=== PATIENT | female | born 1970 | race Caucasian/White ===

== ENCOUNTER 2017-08-15 12:34 | Emergency (ER) | payer OTHER ==
[2017-08-15 12:40] VITALS: BP 132/69; PULSE 95; RESP 16; TEMP 98; O2SAT 99
[2017-08-15] MEDS ORDERED: ACETAMINOPHEN/HYDROcodone 325 MG/10 MG TAB PO ONE (13:15)
[2017-08-15] MEDS ORDERED: oxyCODONE/ACETAMINOPHEN 10 MG/325 MG TAB PO ONE (13:15)
--- NOTE | 2017-08-15 14:06 | RADRPT ---
EXAM DATE: 08/15/2017 2:01 PM EDT AGE/SEX: 47 years / Female INDICATIONS: Medial knee pain after fall today. CLINICAL DATA: This is the patient's initial encounter. Patient reports that signs and symptoms have been present for 1 day and indicates a pain score of 10/10. MEDICAL/SURGICAL HISTORY: . No pertinent medical history. . No pertinent surgical history. COMPARISON: No prior [place] exams available for comparison. FINDINGS: Bony structures are intact and in normal alignment. Joints are intact without dislocation or signifi cant arthropathy. Osseous density is normal. Soft tissues are unremarkable. No radiopaque foreign bodies seen. No joint effusion is demonstrated. CONCLUSION: Unremarkable examination. Electronically signed by: Wilbert Chua MD 08/15/2017 2:05 PM EDT
--- NOTE | 2017-08-15 14:23 | PD ---
HPI Chief Complaint: Injury Time Seen by Provider: 12:50 Travel History International Travel<30 days: No Contact w/Intl Traveler<30days: No Traveled to known affect area: No History of Present Illness HPI 47-year-old female that presents to the ED for evaluation of injury to her left leg. Per patient she accidentally tripped and fell last night. She states that she was playing with some children and she was stepping on a wet floor when her foot slipped and twisted and she fell on her medial aspect of her knee. Per patient the pain is in the medial aspect of her knee. She is able to ambulate with some difficulty. She states that the pain is 8 out of 10. Per patient she was seen in urgent care where she was told that she could come here for evaluation for possible MRI for torn ligaments. Patient able to move the leg fully. Patient states that she has never had any injuries before. No numbness, drooling, weakness. No chest pain or shortness of breath. No head injury loss of consciousness. PFSH Past Medical History Hiatal Hernia: Yes Hypertension: Yes ?: Not : 4 Para: 3 : 1 Past Surgical History Hysterectomy: Yes (partial) Social History Alcohol Use: Yes (on occasion) Tobacco Use: Yes (0.5 ppd) Substance Use: No Allergies-Medications (Allergen,Severity, Reaction): Coded Allergies: No Known Allergies (Unverified , 08/15/17) Reported Meds & Prescriptions Reported Meds & Active Scripts Active Percocet (Oxycodone-Acetaminophen) 5-325 mg Tab 1 Tab PO Q6H PRN Diclofenac Sodium DR (Diclofenac Sodium) 75 Mg Tabdr 75 Mg PO BID PRN Review of Systems Except as stated in HPI: all other systems reviewed are Neg Physical Exam Narrative GENERAL: SKIN: Warm and dry. HEAD: Atraumatic. Normocephalic. EYES: Pupils equal and round. No scleral icterus. No injection or drainage. ENT: No nasal bleeding or discharge. Mucous membranes pink and moist. Tongue is midline. No uvula deviation. NECK: Trachea midline. No JVD. CARDIOVASCULAR: Regular rate and rhythm. RESPIRATORY: No accessory muscle use. Clear to auscultation. Breath sounds equal bilaterally. GASTROINTESTINAL: Abdomen soft, non-tender, nondistended. Hepatic and splenic margins not palpable. MUSCULOSKELETAL: Extremities without clubbing, cyanosis, or edema. No obvious deformities. Full range of motion of the upper and lower extremities bilaterally. 2+ pulses bilaterally. Sensation intact bilaterally. Patient has reversible pain on the medial aspect of the knee. Most of the tenderness appears to be in the medial aspect. None on the left. Minor swelling noted. Valgus and varus test negative. Anterior-posterior drawer test negative. NEUROLOGICAL: Awake and alert. No obvious cranial nerve deficits. Motor grossly within normal limits. Five out of 5 muscle strength in the arms and legs. Normal speech. PSYCHIATRIC: Appropriate mood and affect; insight and judgment normal. Data Data Last Documented VS Vital Signs Date Time Temp Pulse Resp B/P (MAP) Pulse Ox O2 Delivery O2 Flow Rate FiO2 08/15/17 12:40 98.0 95 16 132/69 (90) 99 Orders Orders Knee, Complete (4vws) (08/15/17 13:02) Ice/Cold Pack (08/15/17 13:02) Crutches (08/15/17 13:02) Acetamin-Hydrocod 325-10 Mg ([place] 10-32 (08/15/17 13:15) Oxycodone-Acetamin 10-325 Mg (Percocet 1 (08/15/17 13:15) Splint Or Brace Apply/Monitor (08/15/17 14:26) Ed Discharge Order (08/15/17 14:37) Immobilizer Knee 20 Inch (08/15/17 ) Morphine Inj (Morphine Inj) (08/15/17 14:45) Ondansetron Odt (Zofran Odt) (08/15/17 14:45) Ketorolac Inj (Toradol Inj) (08/15/17 14:45) MDM Medical Decision Making Medical Screen Exam Complete: Yes Emergency Medical Condition: Yes Medical Record Reviewed: Yes Interpretation(s) Last Impressions Knee X-Ray 08/15/17 1302 Signed Impressions: CONCLUSION: Unremarkable examination. Differential Diagnosis Knee contusion versus knee sprain versus internal derangement versus fracture Narrative Course 47-year-old female that presents to the ED for evaluation of left knee pain. Patient was properly examined and was found to have signs and symptoms consistent with appears to be knee pain. X-ray was done. X-ray was negative for acute disease. At this time this appears to be likely ligamental injury. Denies any sign of tear as patient herself is able to move it fully. She does have pain with weightbearing. At this time I recommend conservative treatment with crutches, knee immobilizer. She was given a short prescription for pain medications as needed. See ED if worsening symptoms. Follow with orthopedic doctor. Diagnosis Primary Impression: Knee internal derangement Qualified Codes: M23.92 - Unspecified internal derangement of left knee Referrals: Park Rosa MD, Todd Andrew MD Rhodes, J. Richard Richard MD Patient Instructions: General Instructions, Narcotic given in the ED Additional Instructions: Take medications as prescribed. Follow-up with PCP or orthopaedic doctor this week if no improvement of symptoms. See ED for any worsening symptoms. Do not drink or drive while taking pain medication. Apply ice or heat as needed for pain. A couple of Doctor in [place]: Dr Sami carter [phone] Med/Other Pt SpecificInfo: Prescription(s) given Scripts Oxycodone-Acetaminophen (Percocet) 5-325 mg Tab 1 TAB PO Q6H Y for PAIN, #10 TAB 0 Refills Prov: Hazel Nicole DO 08/15/[address] (Diclofenac Sodium DR) 75 Mg Tabdr 75 MG PO BID Y for PAIN SCALE 1 TO 10, #20 TAB 0 Refills Prov: Hazel Nicole DO 08/15/17 Disposition: 01 DISCHARGE HOME Condition: Stable Temo Jackson August 15, 2017 14:23
[2017-08-15] MEDS ORDERED: DICL75TA PO (14:27)
[2017-08-15] MEDS ORDERED: PERC5TAB12 PO (14:27)
[2017-08-15] MEDS ORDERED: MORPHINE SULFATE 4 MG/ML INJ IM ONE (14:45)
[2017-08-15] MEDS ORDERED: ONDANSETRON ODT 4 MG TAB PO ONE (14:45)
[2017-08-15] MEDS ORDERED: KETOROLAC TROMETHAMINE 60 MG/2 ML (IM) VIAL IM ONE (14:45)
== END 2017-08-15 15:31 | disposition home or self-care (01) ==
LOC: NEPC 12:34
DX: M23.92 Unspecified internal derangement of left knee (principal); F17.200 Nicotine dependence, unspecified, uncomplicated
CPT/HCPCS: 73564; 96372; 99283; E0113; J1885; J2270; L1830

== ENCOUNTER 2017-09-21 05:03 | Inpatient (IN) ==
[2017-09-24 09:45] VITALS: RESP 17
[2017-09-24 12:45] VITALS: BP 132/70; PULSE 81; TEMP 97.9; O2SAT 96
== END 2017-09-24 15:27 | disposition home or self-care (01) ==
LOC: HSDI 05:03 → N07 16:11
PROVIDERS: ADMIT Surgery; ATTEND Surgery